=== PATIENT | female | born 1985 | race Caucasian/White ===

== ENCOUNTER 2022-07-29 07:08 | Day surgery (SDC) | payer BC ==
[2022-07-28 15:11] LABS: BASOPHILS % (AUTO) 0.4 % (0-1); EOSINOPHILS # (AUTO) 0.1 X10'3 (0-0.9); EOSINOPHILS % (AUTO) 1.5 % (0-6); LYMPHOCYTES # (AUTO) 2.6 X10'3 (1.1-4.8); LYMPHOCYTES % (AUTO) 31.8 % (21-51); MEAN CORPUSCULAR HEMOGLOBIN 28.9 PG (27.0-31.0); MEAN CORPUSCULAR VOLUME 87.5 FL (78-98); MEAN PLATELET VOLUME 7.9 FL (7.4-10.4); MONOCYTES # (AUTO) 0.6 X10'3 (0-0.9); MONOCYTES % (AUTO) 7.8 % (2-12); NEUTROPHILS # (AUTO) 4.7 X10'3 (1.8-7.7); NEUTROPHILS % (AUTO) 58.5 % (42-75); PRE OP HEMATOCRIT 38.6 % (35.0-45.0); PRE OP HEMOGLOBIN 12.7 g/dL (12.0-16.0); PRE OP PLATELET COUNT 250 X10'3 (140-440); RED BLOOD COUNT 4.41 X10'6 (4.20-5.60); RED CELL DISTRIBUTION WIDTH 13.3 % (11.5-14.5)
[2022-07-28 15:17] LABS: CLARITY,URINE CLOUDY (Clear); COLOR,URINE YELLOW (Yellow); GLUCOSE, URINE NEGATIVE (Neg); KETONES,URINE NEGATIVE (Neg); LEUKOCYTE ESTERASE ,URINE SMALL (Neg); NITRITES, URINE NEGATIVE (Neg); OCCULT BLOOD,URINE NEGATIVE (Neg); PH,URINE 7.5 (4.8-8.0); PROTEIN,URINE NEGATIVE (Neg); UROBILINOGEN,URINE 0.2 E.U/dL (0.2-1.0)
[2022-07-28 15:26] LABS: ALBUMIN 4.2 G/DL (3.4-5.0); ALBUMIN/GLOBULIN RATIO 1.3 (1.1-1.5); ALKALINE PHOSPHATASE 98 IU/L (46-116); BLOOD UREA NITROGEN 9 MG/DL (7-18); BUN/CREATININE RATIO 11.8 (6.6-38.0); CALCIUM 9.1 MG/DL (8.5-10.1); CHLORIDE 104 MMOL/L (99-107); CREATININE 0.76 MG/DL (0.40-0.90); PRE OP ALT 19 U/L (30-65); PRE OP BILIRUB, TOTAL 0.2 MG/DL (0.0-1.0); PRE OP GLUCOSE 97 MG/DL (70-104); TOTAL CARBON DIOXIDE 29.1 MMOL/L (24-32); TOTAL PROTEIN 7.4 G/DL (6.4-8.2); eGFR 85 ML/MIN
[2022-07-28 15:27] LABS: PRE OP AST 13 U/L (10-37)
[2022-07-28 15:28] LABS: UA COLLECTION TYPE CLN CATCH MIDSTREAM
[2022-07-28 15:29] LABS: SQUAMOUS EPITHELIAL CELL,UR MODERATE /LPF (FEW)
[2022-07-28 15:31] LABS: AMORPHOUS PHOSPHATES 3+; TRANSITIONAL EPI CELLS,URINE FEW /HPF
[2022-07-28 15:32] LABS: RBC,URINE 0-2 /HPF (0-2)
[2022-07-28 15:33] LABS: BACTERIA,URINE FEW /HPF (Neg)
[2022-07-28 15:54] LABS: BETA HCG,QUANTITATIVE < 1.0 mIU/ml; PRE OP POTASSIUM 3.6 MMOL/L (3.4-5.1)
[2022-07-28 16:21] LABS: PRE OP ANION GAP 7 (8-16); PRE OP SODIUM 140 MMOL/L (135-145)
[~2022-07-29] VITALS: Ht 180.3 cm; Wt 82.1 kg
[~2022-07-29 07:08] MED LIST: CHLO4TAB36 PO; CHOL400T57 PO; CYCL-1 PO; LEMB5TAB; MONT10TA21 PO; NORT25CA PO; ceFAZolin inj. 2,000 MG in dextrose 5%-water 100 ML IV ONE; famotidine 20mg tablet PO ONE; ringers solution, lacted 1,000 ML IV SCH
[2022-07-29 07:15] VITALS: BP 121/75
[2022-07-29] MEDS ORDERED: LIDOcaine 1% 30ml preserv. free vial ONE (07:33)
[2022-07-29] MEDS ORDERED: BUPIVAcaine 0.25% w/Epi /PF 30ml vial ONE (07:34)
[2022-07-29] MEDS ORDERED: BUPIVAcaine/PF 2.5 mg/ml (0.25%) 30ml vial ONE (08:40)
[2022-07-29] MEDS ORDERED: fentaNYL/PF 50MCG/1 ML 2ML syringe ONE (09:01)
[2022-07-29] MEDS ORDERED: midazolam 1 mg/ML 2ml injection ONE (09:03)
[2022-07-29] MEDS ORDERED: dexamethasone sod phosphate 4mg/ml inj. ONE (09:34)
[2022-07-29] MEDS ORDERED: ondansetron/PF 4mg/2ml inj ONE (09:34)
[2022-07-29] MEDS ORDERED: propofol inj 20 ML IV ONE (09:34)
[2022-07-29 09:50] VITALS: BP 109/67
[2022-07-29] MEDS ORDERED: ondansetron/PF 4mg/2ml inj IV PRN (09:50)
[2022-07-29] MEDS ORDERED: morphine 2 MG/ML inj. syringe IV PRN (09:50)
[2022-07-29] MEDS ORDERED: ringers solution, lacted 1,000 ML IV SCH (09:50)
[2022-07-29] MEDS ORDERED: morphine 4 MG/ML inj SYRINge IV PRN (09:50)
[2022-07-29] MEDS ORDERED: meperidine/PF 25mg/ml syringe IV PRN ×3 (09:50)
[2022-07-29] MEDS ORDERED: proCHLORperazine 10 MG/2 ml inj IV PRN (09:50)
--- NOTE | 2022-07-29 09:50 | NUR ---
PT ARRIVED TO VIA GURNEY ACCOMPANIED BY DR STOCKTON-ANESTHESIA REPORT GIVEN, VSS, LMA STILL IN PLACE-REMOVED WITHIN MINUTES OF ARRIVAL TO RR, PT WAKING UP, NO SN/SX OF DISCOMFORT, PIV 20G-R A/C, LEFT NECK-SITE GLUED, SOFT NO SN/SX OF BLEEDING.
[2022-07-29 10:00] VITALS: BP 117/82
[2022-07-29 10:10] VITALS: BP 126/86
[2022-07-29 10:20] VITALS: BP 116/86
[2022-07-29 10:30] VITALS: BP 134/86
--- NOTE | 2022-07-29 10:30 | NUR ---
PT GETTING DRESSED, VSS, DENIES PAIN OR NAUSEA, PIV-D/CD-CANULA INTACT, LEFT NECK-SOFT, NO BLEEDING AT SITE, D/C INSTRUCTIONS GIVEN TO PT-ALL QUESTIONS ANSWERED, TAKEN WITH ALL BELONGINGS TO VEHICLE FOR TRANSPORT HOME.
== END 2022-07-29 10:30 | disposition home or self-care (01) ==
LOC: PAS 07:08
PROVIDERS: ATTEND Surgery
DX: R59.1 Generalized enlarged lymph nodes (principal); Z79.899 Other long term (current) drug therapy; Z98.890 Other specified postprocedural states; Z88.6 Allergy status to analgesic agent; J45.909 Unspecified asthma, uncomplicated; D64.9 Anemia, unspecified; Z91.048 Other nonmedicinal substance allergy status; R10.2 Pelvic and perineal pain
CPT/HCPCS: 36415; 38510; 80053; 81001; 82948; 84702; 85025; J0690; J1100; J2250; J2405; J2704; J3010; J3490; J7030; J7060; J7120; Z7506; Z7512; A4215; A4618; A6258; A7000; S0020